=== PATIENT | male | born 1940 | race Hispanic/Latino ===

== ENCOUNTER 2021-06-15 08:13 | Observation (INO) | payer OTHER ==
[2021-06-13 09:38] LABS: BASOPHILS % (AUTO) 0.5 % (0.0-5.0); EOSINOPHILS % (AUTO) 4.6 % (0.0-8.0); HEMATOCRIT 39.1 % (42-54); LYMPHOCYTES % (AUTO) 31.1 % (21.0-51.0); MEAN CORPUSCULAR HEMOGLOBIN 31.8 pg (27.0-33.0); MEAN CORPUSCULAR VOLUME 96.3 fL (79-99); MONOCYTES % (AUTO) 7.6 % (3.0-13.0); NEUTROPHILS % (AUTO) 55.8 % (40.0-77.0); PLATELET COUNT (AUTO) 200 K/uL (130-400); RED BLOOD CELL COUNT(AUTO) 4.06 MIL/uL (4.50-6.20); RED CELL DISTRIBUTION WIDTH 13.3 % (11.0-15.5); WHITE BLOOD COUNT (AUTO) 5.7 K/uL (4.8-10.8)
[2021-06-13 09:54] LABS: CREATININE 0.9 mg/dL (0.5-1.5); POTASSIUM 3.6 mmol/L (3.5-5.1)
[2021-06-13 10:01] LABS: INR 1.03 (0.85-1.15); PROTHROMBIN TIME 11.2 SEC (9.6-11.6)
[2021-06-14 18:03] VITALS: BP 152/65
[2021-06-15] VITALS (16 sets, daily range): BP systolic 114–145; BP diastolic 48–88
[~2021-06-15] VITALS: Ht 162.6 cm; Wt 97.7 kg
[~2021-06-15 08:13] MED LIST: LOSA100T58 PO; SIMV-46 PO
[2021-06-15] MEDS ORDERED: LACTATED RINGERS 1000ML 1,000 ML IV ONE (10:42)
[2021-06-15] MEDS ORDERED: MIRA50TA PO (11:14)
[2021-06-15] MEDS ORDERED: NEOMY SULF/BACITRAC ZN/POLY OINT 30GM TUBE TP ONE (12:12)
[2021-06-15] MEDS ORDERED: LIDOCAINE HCL/EPINEPHRINE 30 ML VIAL IJ ONE (12:12)
[2021-06-15] MEDS ORDERED: PROPOFOL 10 MG/ML 20ML VIAL IV ONE ×2 (12:20→12:48)
[2021-06-15] MEDS ORDERED: FENTANYL CITRATE PF 50 MCG/1 ML 2ML VIAL ONE ×2 (12:20→14:13)
[2021-06-15] MEDS ORDERED: MIDAZOLAM HCL 1 MG/ML 2ML VIAL ONE (12:21)
[2021-06-15] MEDS ORDERED: ROCURONIUM 10MG/1ML SYR 10 MG/ML ML ONE (12:21)
[2021-06-15] MEDS ORDERED: CEFAZOLIN SODIUM 1 GM VIAL ONE (13:47)
[2021-06-15] MEDS ORDERED: PHENYLEPHRINE HCL 10 MG/ML 1ML VIAL IV ONE (14:25)
[2021-06-15] MEDS ORDERED: NOREPINEPHRINE BITARTRATE 1 MG/1 ML ML IV ONE (14:32)
[2021-06-15] MEDS ORDERED: ALBUMIN (HUMAN) 5% 250 ML IV ONE (15:43)
[2021-06-15] MEDS ORDERED: GLYCOPYRROLATE 1 MG/5 ML SYRINGE ONE (16:58)
[2021-06-15] MEDS ORDERED: NEOSTIGMINE 5MG/5ML SYR IV ONE (16:58)
[2021-06-15] MEDS ORDERED: HYDROMORPHONE 0.5 MG SYG (0.5MG/0.5ML) IVP PRN ×2 (19:30)
[2021-06-15] MEDS ORDERED: HYDROMORPHONE 0.5 MG SYG (0.5MG/0.5ML) ONE (19:41)
[2021-06-16 03:58] VITALS: BP 113/64
[2021-06-16 08:00] VITALS: BP 132/71
[2021-06-16] MEDS: LOSARTAN 100 MG TABLET PO SCH (09:15)
[2021-06-16 12:00] VITALS: BP 118/70
[2021-06-16] MEDS ORDERED: HYDROMORPHONE 0.5 MG SYG (0.5MG/0.5ML) IVP PRN (14:00)
[2021-06-16 16:00] VITALS: BP 124/64
[2021-06-16 20:00] VITALS: BP 132/69
[2021-06-16] MEDS ORDERED: MIRABEGRON 50 MG PO SCH (21:00)
[2021-06-16] MEDS ORDERED: SIMVASTATIN 20 MG TABLET PO SCH (21:00)
[2021-06-16 23:36] VITALS: BP 128/71
[2021-06-17 03:59] VITALS: BP 139/72
[2021-06-17 06:01] LABS: BASOPHILS % (AUTO) 0.2 % (0.0-5.0); EOSINOPHILS % (AUTO) 0.9 % (0.0-8.0); HEMATOCRIT 35.3 % (42-54); LYMPHOCYTES % (AUTO) 18.1 % (21.0-51.0); MEAN CORPUSCULAR HEMOGLOBIN 30.4 pg (27.0-33.0); MEAN CORPUSCULAR HGB CONC 32.9 g/dL (32.0-36.0); MEAN CORPUSCULAR VOLUME 92.7 fL (79-99); NEUTROPHILS % (AUTO) 71.4 % (40.0-77.0); PLATELET COUNT (AUTO) 146 K/uL (130-400); RED BLOOD CELL COUNT(AUTO) 3.81 MIL/uL (4.50-6.20); WHITE BLOOD COUNT (AUTO) 9.3 K/uL (4.8-10.8)
[2021-06-17 06:17] LABS: CREATININE 0.8 mg/dL (0.5-1.5); POTASSIUM 3.6 mmol/L (3.5-5.1)
[2021-06-17 08:00] VITALS: BP 121/72
[2021-06-17] MEDS: LOSARTAN 100 MG TABLET PO SCH (08:53)
[2021-06-17] MEDS ORDERED: ACETAMINOPHEN 325 MG TAB PO PRN (10:00)
[2021-06-17] MEDS ORDERED: IBUPROFEN 600 MG TABLET PO PRN (10:00)
[2021-06-17 12:00] VITALS: BP 141/70
== END 2021-06-17 14:00 | disposition home or self-care (01) ==
LOC: DAH 08:13 → DAHIP 08:14 → DAH 09:13 → EDSTATUS 14:41 → 3AH 19:19 → EDSTATUS 06-27 08:18
PROVIDERS: ADMIT Internal Medicine; ATTEND Internal Medicine
DX: E04.2 Nontoxic multinodular goiter (principal); Z20.822 Contact with and (suspected) exposure to COVID-19; I10 Essential (primary) hypertension; E66.01 Morbid (severe) obesity due to excess calories; R49.0 Dysphonia; E78.00 Pure hypercholesterolemia, unspecified; Z79.899 Other long term (current) drug therapy
CPT/HCPCS: 36415 ×3; 36430; 60220; 71045; 80048 ×2; 85025 ×2; 85610; 86850; 86900; 86901; 86923 ×2; 87635; 88307; 93005; 96374; 96376; 97161; A4215; A4221; A4222; A4223; A4649 ×2; A4663; A4930 ×4; A6260; G0378 ×49; G0379; J0690; J1170 ×3; J2250; J2370; J2704 ×2; J2710; J3010 ×2; J3490 ×2; J7120 ×2; P9016 ×2; P9045